=== PATIENT | male | born 1990 | race Caucasian/White ===

== ENCOUNTER → 2016-08-02 | Emergency (ER) | payer SELFPAY ==
[~2016-08-02] MED LIST: Sulfamethox/Trimethoprim DS 800/160* TAB PO ONE
[2016-08-02 16:26] VITALS: BP 102/74
--- NOTE | 2016-08-02 16:34 | ED ---
Skin Complaint - HPI Summary HPI Summary: 26M presents with left forearm pain since . He got an abrasion and noticed on Tuesday it started to become infected. He denies any fevers. He states the area has started to drain on its own. He states the infection has gotten better since it started to drain. - History of Current Complaint Chief Complaint: EDLacSutureRecheck Time Seen by Provider: 08/02/16 15:27 Stated Complaint: LT ARM INJURY Pain Intensity: 3 - Allergy/Home Medications Allergies/Adverse Reactions: Allergies Allergy/AdvReac Type Severity Reaction Status Date / Time Penicillins [PCN] Allergy Hives Verified 12/22/15 08:06 PMH/Surg Hx/FS Hx/Imm Hx Endocrine/Hematology History: Denies: Hx Anticoagulant Therapy Respiratory History: Reports: Hx Asthma Infectious Disease History: No Infectious Disease History: Denies: Traveled Outside the [place] in Last 30 Days - Family History Known Family History: Positive: Cardiac Disease - Social History Alcohol Use: Rare Substance Use Type: Reports: None Hx Tobacco Use: Yes Smoking Status (MU): Current Every Day Smoker Type: Cigarettes Review of Systems Negative: Fever Negative: Chest Pain Negative: Shortness Of Breath Positive: Other - abscess left forearm All Other Systems Reviewed And Are Negative: Yes Physical Exam Triage Information Reviewed: Yes Vital Signs On Initial Exam: Initial Vitals Temp Pulse Resp BP Pulse Ox 98.5 F 83 18 121/66 100 08/02/16 14:11 08/02/16 14:11 08/02/16 14:11 08/02/16 14:11 08/02/16 14:11 Vital Signs Reviewed: Yes Appearance: Positive: Well-Appearing Skin: Positive: Other - 3cm by 4cm abscess present on dorsum of left forearm Head/Face: Positive: Normal Head/Face Inspection Eyes: Positive: Normal, Conjunctiva Clear Respiratory/Lung Sounds: Positive: Clear to Auscultation, Breath Sounds Present Cardiovascular: Positive: Normal, RRR Musculoskeletal: Positive: Strength/ROM Intact - of left arm, Other - good pulses Procedures - Incision and Drainage Site: left forearm Instrument(s): Scalpel Diagnostics - Vital Signs Vital Signs Temp Pulse Resp BP Pulse Ox 08/02/16 16:22 98.4 F 70 16 102/74 99 08/02/16 14:56 97.5 F 75 20 115/74 100 08/02/16 14:11 98.5 F 83 18 121/66 100 - Laboratory Lab Statement: Any lab studies that have been ordered have been reviewed, and results considered in the medical decision making process. Course/Dx - Course Course Of Treatment: 26M presents with abscess to left forearm that has been there for a couple days. had an abrasion that appeared to get infected. placed warm compresses on area and drainage was expressed. widen area of drainage with scapel and expressed pus. will place on bactrim and told to continue warm compresses. patient understadns and agrees with plan - Differential Diagnoses - Skin Complaint Differential Diagnoses: Abscess, Cellulitis, Contact Dermatitis - Diagnoses Provider Diagnoses: Abscess of left forearm Discharge - Discharge Plan Condition: Good Disposition: HOME Prescriptions: Sulfamethox/Trimethoprim DS* [Bactrim DS 800/160 TAB*] 1 tab PO BID #19 tab Patient Education Materials: Incision and Drainage (ED) Referrals: No Primary Care Phys,NOPCP [Primary Care Provider] - Additional Instructions: Place warm compresses on area take antibiotic twice a day for 10 days Take Tylenol or ibuprofen every 6 hours for pain Return to ED if develop fever, area of redness spreads, numbness or any new or worsening symptoms Images - Images Full Body (No Head): 1 - abscess
--- NOTE | 2016-08-05 02:00 | PN ---
Progress Note - Progress Note Note: Patient placed on bactrim which is sensitive to. no further action needed.
== END | disposition home or self-care (01) ==
LOC: ED 14:01
DX: L02.414 Cutaneous abscess of left upper limb (principal); F17.210 Nicotine dependence, cigarettes, uncomplicated
CPT/HCPCS: 10060; 87070; 87077; 87186; 87205; 99282; A9270-GY

== ENCOUNTER 2017-03-01 09:35 | Emergency (ER) | payer SELFPAY ==
[2017-03-01] MEDS ORDERED: Ketorolac INJ* 30 MG/ML 1 ML VIAL IV PUSH ONE (10:00)
--- NOTE | 2017-03-01 10:15 | ED ---
Skin Complaint - HPI Summary HPI Summary: Pt here w/ Lt knee pain, redness, swelling and pain x 3 days. Noticed as small area of redness, swelling and soreness - came to a head like a pimple and ruptured - was able to extract a minimal amount of purulent drainage. Since, area closed and redness spreading - warm to touch and tender. Skin over knee is sore w/ flexion at 100 degrees but pain resolves once past this - can flex to 145 w/o pain or difficulty. Denies numbness, tingling, weakness, fever or chills. 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 H/o staph tx'd w/ bactrim (documented here) - worked well. He also believes he has h/o MRSA. - History of Current Complaint Chief Complaint: EDExtremityLower Time Seen by Provider: 03/01/17 09:48 Stated Complaint: LT KNEE COMPLAINT Hx Obtained From: Patient Pain Intensity: 6 - Allergy/Home Medications Allergies/Adverse Reactions: Allergies Allergy/AdvReac Type Severity Reaction Status Date / Time Penicillins [PCN] Allergy Hives Verified 12/22/15 08:06 PMH/Surg Hx/FS Hx/Imm Hx Previously Healthy: Yes Endocrine/Hematology History: Denies: Hx Anticoagulant Therapy, Autoimmune Disease Respiratory History: Reports: Hx Asthma - Immunization History Immunizations Up to Date: Yes Infectious Disease History: No Infectious Disease History: Reports: Hx of Known/Suspected MRSA, History Other Infectious Disease - staph aureus Denies: Traveled Outside the [place] in Last 30 Days - Family History Known Family History: Positive: Cardiac Disease - Social History Alcohol Use: Rare Substance Use Type: Reports: None Hx Tobacco Use: Yes Smoking Status (MU): Current Every Day Smoker Type: Cigarettes Review of Systems Constitutional: Negative Negative: Fever, Chills, Fatigue Cardiovascular: Negative Negative: Palpitations, Chest Pain Respiratory: Negative Negative: Shortness Of Breath Gastrointestinal: Negative Negative: Abdominal Pain, Vomiting, Diarrhea, Nausea Positive: no symptoms reported Positive: Edema. Negative: Arthralgia, Myalgia, Decreased ROM Skin: Other - infection as in HPI Neurological: Negative Psychological: Normal All Other Systems Reviewed And Are Negative: Yes Physical Exam Triage Information Reviewed: Yes Vital Signs On Initial Exam: Initial Vitals Temp Pulse Resp BP Pulse Ox 99.2 F 100 18 139/80 100 03/01/17 09:37 03/01/17 09:37 03/01/17 09:37 03/01/17 09:37 03/01/17 09:37 Vital Signs Reviewed: Yes Appearance: Positive: Well-Appearing, No Pain Distress, Well-Nourished Skin: Positive: Warm, Dry - scabbed papule over anterior knee with surrounding dark erythema about the size of a quarter; 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 Negative: Leg Edema Left, Leg Edema Right Musculoskeletal: Positive: Normal, Strength/ROM Intact Neurological: Positive: Normal, Sensory/Motor Intact, Alert, Oriented to Person Place, Time, CN Intact II-III Psychiatric: Positive: Normal - Goff Coma Scale Coma Scale Total: 15 Diagnostics - Vital Signs Vital Signs Temp Pulse Resp BP Pulse Ox 03/01/17 09:37 99.2 F 100 18 139/80 100 - Laboratory Result Diagrams: 03/01/17 10:07 03/01/17 10:07 Lab Statement: Any lab studies that have been ordered have been reviewed, and results considered in the medical decision making process. Course/Dx - Course Course Of Treatment: Pt presents w/ area of skin over knee w/ redness, soreness and swelling. Started as a pimple as pt describes it. Labs and vitals are unremarkable for sepsis and clinical presentation does not appear suspicious for septic joint. Will treat cellulitis w/ PO anbx and pt to f/u w/ PCP for monitoring. Reviewed danger s/sx of when to return to ED. Pt agrees w/ plan. Discussed w. Dr. Frausto. - Diagnoses Provider Diagnoses: Cellulitis of knee Discharge - Discharge Plan Condition: Stable Disposition: HOME Prescriptions: Ibuprofen TAB* [Motrin TAB* 600 MG] 600 mg PO Q6H PRN #20 tab PRN Reason: Pain Sulfamethox/Trimethoprim DS* [Bactrim DS 800/160 TAB*] 1 tab PO BID #19 tab Patient Education Materials: Cellulitis (ED) Forms: *Work Release Referrals: [facility]ERR[facility] [Outside] No Primary Care Phys,NOPCP [Primary Care Provider] - Additional Instructions: Rest, ice, elevate Take ibuprofen as directed for pain - may alternate with acetaminophen 650mg every 6 hours Complete antibiotic Follow-up with PCP in 3-4 days. If you do not have one, call to establish or return to [facility] or ED *If worse or you develop fever, chills, vomiting, streaking, joint stiffness, return to ED
[2017-03-01 10:22] LABS: Hematocrit 47 % (42-52); Hemoglobin 16.2 g/dl (14.0-18.0); Mean Corpuscular HGB Conc 35 g/dl (31-36); Mean Corpuscular Hemoglobin 29 pg (27-31); Mean Corpuscular Volume 85 fL (80-94); Mean Platelet Volume 9 um3 (7.4-10.4); Red Blood Count 5.52 10^6/ul (4.0-5.4); Red Cell Distribution Width 13 % (10.5-15)
[2017-03-01 10:38] LABS: Albumin 4.5 g/dL (3.2-5.2); BUN/Creatinine Ratio 14.5 (8-20); C Reactive Protein 13.43 mg/L (< 5.00); Calcium 9.8 mg/dL (8.6-10.3); EGFR African American 158.2 (>60); Globulin 2.7 g/dL (2-4); Potassium 4.2 mmol/L (3.5-5.0); Total Bilirubin 0.6 mg/dL (0.2-1.0); Total Protein 7.2 g/dL (6.4-8.9)
[2017-03-01] MEDS ORDERED: DOXYcycline IV* 100 MG in NS 0.9% 250 ML* 250 ML IVPB ONE (10:46)
[2017-03-01] MEDS ORDERED: Sulfamethox/Trimethoprim DS 800/160* TAB PO ONE (10:48)
[2017-03-01 11:03] VITALS: BP 137/74
[2017-03-01 11:38] LABS: Erythrocyte Sed Rate 4 mm/Hr (0-14)
== END 2017-03-01 11:00 | disposition home or self-care (01) ==
LOC: ED 09:35
DX: L03.116 Cellulitis of left lower limb (principal); F17.210 Nicotine dependence, cigarettes, uncomplicated; J45.909 Unspecified asthma, uncomplicated
CPT/HCPCS: 36415; 80053; 83605; 85025; 85652; 86140; 96374; 99282; A9270-GY; J1885